=== PATIENT | male | born 2000 | race Caucasian/White ===

== ENCOUNTER 2018-07-27 15:12 | Emergency (ER) | payer SELFPAY ==
[2018-07-27 15:42] VITALS: BP 134/69
--- NOTE | 2018-07-27 16:42 | UC ---
Headache HPI - HPI Summary HPI Summary: Pt presents with c/o of frequent migraine HANEY over the last 4 days. Pt has hx of migraine as a child but states he "out grew them". Pt reports that he has been trying to reduce his caffeinated soda consumption over the last 2 months. Pt wears glasses and reports that he is "overdue" for a checkup - History Of Current Complaint Chief Complaint: UCHeadache Stated Complaint: FREQUENT MIGRAINES X 1 MONTH Time Seen by Provider: 07/27/18 16:23 Hx Obtained From: Patient Onset/Duration: Gradual Onset, Lasting Hours, Resolved Onset Of Symptoms: Gradual, Resolved Initially Headache Was: Moderate Pain Intensity: 0 Timing: Intermittent, Lasting:, Hours Character: Migraine Location of Headache: Diffuse Aggravating Factor(s): Bright Lights Allevating Factor(s): Rest Associated Signs And Symptoms: Positive: Negative - Risk Factors SAH Risk Factors: Negative Meningitis Risk Factors: Negative SDH Risk Factors: Male Temporal Arteritis Risk Factors: Negative - Allergies/Home Medications Allergies/Adverse Reactions: Allergies Allergy/AdvReac Type Severity Reaction Status Date / Time No Known Allergies Allergy Verified 07/27/18 15:35 Home Medications: Home Medications Aspirin 650 mg PO ONCE PRN 07/27/18 [History Confirmed 07/27/18] PMH/Surg Hx/FS Hx/Imm Hx Previously Healthy: Yes - Surgical History Surgical History: Yes Surgery Procedure, Year, and Place: hernia - Family History Known Family History: Positive: Cardiac Disease - Social History Occupation: Employed Full-time Lives: With Family Alcohol Use: None Substance Use Type: Excessive Caffeine Substance Use Comment - Amount & Last Used: 2 pepsi 24 oz daily Smoking Status (MU): Never Smoked Tobacco Have You Smoked in the Last Year: No Review of Systems Constitutional: Negative Skin: Negative Eyes: Negative ENT: Negative Respiratory: Negative Cardiovascular: Negative Gastrointestinal: Negative Genitourinary: Negative Motor: Negative Neurovascular: Negative Musculoskeletal: Negative Neurological: Headache Psychological: Negative Is Patient Immunocompromised?: No All Other Systems Reviewed And Are Negative: Yes Physical Exam Triage Information Reviewed: Yes Appearance: Well-Appearing Vital Signs: Initial Vital Signs Temp 98.9 F 07/27/18 15:37 Pulse 117 07/27/18 15:37 Resp 14 07/27/18 15:37 BP 134/69 07/27/18 15:37 Pulse Ox 97 07/27/18 15:37 Vital Signs Reviewed: Yes Eye Exam: Normal ENT Exam: Normal Dental Exam: Normal Neck exam: Normal Respiratory Exam: Normal Cardiovascular Exam: Normal Musculoskeletal Exam: Normal Neurological Exam: Normal Psychological Exam: Normal Skin Exam: Normal Headache Course/Dx - Differential Dx/Diagnosis Differential Diagnosis/HQI/PQRI: Migraine, Tension Headache, Other - caffeine withdrawal Provider Diagnoses: Headaches. possible caffeine withdrawal Discharge - Sign-Out/Discharge Documenting (check all that apply): Patient Departure All imaging exams completed and their final reports reviewed: No Studies - Discharge Plan Condition: Stable Disposition: HOME Patient Education Materials: Acute Headache (ED) Forms: *Work Release Referrals: [facility] [Outside] - If Needed No Primary Care Phys,NOPCP [Primary Care Provider] - Additional Instructions: Please establish care with a primary care provider and follow up as soon as possible. If your symptoms worsen, please seek care immediately at the closest emergency room. - Billing Disposition and Condition Condition: STABLE Disposition: Home
== END 2018-07-27 16:54 | disposition home or self-care (01) ==
LOC: UCCORT 15:12
DX: R51 Headache (principal)
CPT/HCPCS: 99201; G0463